=== PATIENT | female | born 1985 | race Caucasian/White ===

== ENCOUNTER 2016-12-08 18:55 | Emergency (ER) | payer OTHER ==
[~2016-12-08] VITALS: Ht 182.9 cm; Wt 64.8 kg
[~2016-12-08 18:55] MED LIST: AMBIEN5 M1 PO; BACTRIM,SEPT1 TABLET PO; CIPRO500 MG PO; CIPRO750 MG PO; CIPROFLOXACIN500 M1 PO; CLEOCIN300 MG PO; CYCLOBENZAPRINE10 MG PO; DEPO-SUBQ104 MG/0.6 SQ; DOLOPHINE HCL10 MG PO; FIORICET 50-301 EACH PO; FLEET ENEMA-AD118 ML PR; FLEXERIL10 MG PO; KEFLEX500 MG PO; KLONOPIN0.5 M1 PO; LEVAQUIN750 MG PO; MACROBID100 MG PO; METHADONE10 MG PO; MILK OF MAGN PO; MOBIC7.5 MG PO; MS CONTIN,ORAMO15 M1 PO; NITROFURANTOIN100 MG PO; NOHOMEMEDS; OXYCODONE HCL30 MG PO; OXYCONTIN15 MG PO; OXYCONTIN60 MG PO; PERCOCET 5/31 TABLET PO; PROMETHAZINE HC25 M1 PO; PROZAC20 MG PO; PROzac PO; PYRIDIUM100 MG PO; Percocet 5/325,Endoc PO; SARAFEM20 M1 PO; TYLENOL EXTRA500 M1 PO; TYLENOL EXTRA500 MG PO; Tylenol Regular Stre PO; ZOFRAN ODT4 MG PO; ZOFRAN4 MG PO; ZOFRAN8 MG PO
[2016-12-08 19:58] LABS: CHLORIDE 101 mEq/L (99-109); POTASSIUM 3.4 mEq/L (3.7-5.4); SODIUM 136 mEq/L (136-147)
[2016-12-08 20:00] LABS: GLUCOSE 106 mg/dL (70-99)
[2016-12-08 20:01] LABS: ANION GAP 9 MEQ/L (2-14)
[2016-12-08 20:02] LABS: TOTAL BILIRUBIN 0.5 mg/dL (0.0-1.0)
[2016-12-08 20:04] LABS: ALKALINE PHOSPHATASE 63 IU/L (3-129); GFR ESTIMATE (CALCULATED) > 59 mL/min/
[2016-12-08 20:05] LABS: HEMATOCRIT 36.7 % (36.0-46.0); MCH 29.8 PG (29.0-34.0); MCHC 33.8 G/DL (30.0-36.0); MCV 88.2 FL (83-99); RBC DIS.WIDTH-CV 12.5 % (11.8-14.6); RBC DIS.WIDTH-SD 40.6 % (39-53); RED BLOOD COUNT 4.16 M/uL (3.80-5.20); UREA NITROGEN (BUN) 9 mg/dL (9-23); WHITE BLOOD COUNT 10.2 K/uL (4.1-10.2)
[2016-12-08 20:36] LABS: ADD MIUA? YES; BILIRUBIN NEGATIVE; BLOOD NEGATIVE; COLOR YELLOW ((YELLOW)); GLUCOSE (STRIP) NEGATIVE; KETONES NEGATIVE; LEUKOCYTES MODERATE; NITRITE POSITIVE; PROTEIN (STRIP) 30; SPECIFIC GRAVITY 1.026 (1.000-1.030); UROBILINOGEN 0.2 MG/DL (0.2-1.0)
[2016-12-08 20:44] LABS: BACTERIA 3+ /HPF; EPITHELIAL CELLS 1+ /HPF; MUCUS 4+ /LPF; UCUL ADDED? YES; UNCLASSIFIED CRYSTALS 2+ /HPF; WHITE BLOOD CELLS TNTC /HPF (0-5)
[2016-12-08 21:02] LABS: MEAN PLAT.VOLUME 12.2 uM^3 (9.5-12.4); PLATELET COUNT 136 K/uL (156-360)
[2016-12-08] MEDS ORDERED: CIPRO500 MG PO (21:37)
[2016-12-08 23:24] VITALS: BP 95/59
== END 2016-12-08 23:35 | disposition home or self-care (01) ==
LOC: EME 18:55
PROVIDERS: Emergency Medicine
DX: N12 Tubulo-interstitial nephritis, not specified as acute or chronic (principal); Z87.440 Personal history of urinary (tract) infections; G89.29 Other chronic pain; F17.200 Nicotine dependence, unspecified, uncomplicated
CPT/HCPCS: 80053; 81003; 83605; 85027; 87077; 87086; 87186; 99281; 99285; J0744; J2270; J2405; J7030

== ENCOUNTER 2017-10-06 11:12 | Emergency (ER) | payer OTHER ==
[~2017-10-06] VITALS: Ht 182.9 cm; Wt 59.2 kg
[2017-10-06 13:47] VITALS: BP 121/85
== END 2017-10-06 13:30 | disposition left against medical advice (07) ==
LOC: EME 11:12
DX: R30.9 Painful micturition, unspecified (principal); R10.2 Pelvic and perineal pain; R11.10 Vomiting, unspecified; R50.9 Fever, unspecified; Z53.21 Procedure and treatment not carried out due to patient leaving prior to being seen by health care provider
CPT/HCPCS: 81003; 99281

== ENCOUNTER 2017-11-23 09:06 | Emergency (ER) | payer OTHER ==
[~2017-11-23] VITALS: Ht 182.9 cm; Wt 65.9 kg
[2017-11-23] MEDS ORDERED: PREDNISONE10 M1 PO (10:01)
[2017-11-23] MEDS ORDERED: FLEXERIL10 MG PO (10:01)
[2017-11-23 10:24] VITALS: BP 106/71
== END 2017-11-23 10:27 | disposition home or self-care (01) ==
LOC: EME 09:06
DX: M54.5 Low back pain (principal); M51.36 Other intervertebral disc degeneration, lumbar region; G89.29 Other chronic pain; F17.200 Nicotine dependence, unspecified, uncomplicated; Z88.5 Allergy status to narcotic agent; Z88.0 Allergy status to penicillin; Z88.6 Allergy status to analgesic agent; Z91.040 Latex allergy status
CPT/HCPCS: 99281; 99283; J1885